=== PATIENT | female | born 1955 | race Two or more races ===

== ENCOUNTER → 2016-11-03 | Outpatient (CLI) | payer SELFPAY ==
--- NOTE | 2016-11-03 14:12 | RAD ---
Right great toe, 3 views, 11/03/2016: History: Great toe swelling No acute fracture or destructive bony lesion is seen. No significant arthritic change is seen. There is sesamoid bone deformity and sclerosis at the first MTP joint level suggesting old trauma. IMPRESSION: No acute bony abnormality is detected.
== END | disposition home or self-care (01) ==
LOC: DXRADRC 11:02
PROVIDERS: ATTEND Physician Assistant Medical
DX: M79.89 Other specified soft tissue disorders (principal)
CPT/HCPCS: 73660

== ENCOUNTER → 2020-11-09 | Outpatient (CLI) | payer MEDICARE ==
--- NOTE | 2020-11-09 16:43 | RAD ---
Bone Densitometry History: Reason: / Spl. Instructions: / History: Findings: Bone Densitometry was performed with dual photon absorption of the lumbar spine and right proximal fe mur. Lumbar Spine: Bone density is 1.32 g/cm2 for L1-L4. T-score is 1.2. Z-score is 2.3. Right femoral neck: Bone density is 0.699 g/cm2. T-score is -1.9. Z-score is -0.7. IMPRESSION: 1. Normal bone mineral density of the lumbar spine. 2. Osteopenia of the right femoral neck. World Health Organization definition of osteoporosis and osteopenia for women: normal equal s T score at or above -1.0 standard deviations; osteopenia equals T score between -1.0 and -2.5 stand jennifer deviations; osteoporosis equals T score at or below -2.5 standard deviations. Electronically signed by: Brijesh Kennedy MD (11/09/2020 4:41 PM) [id number]
--- NOTE | 2020-11-09 17:27 | RAD ---
BILATERAL SCREENING MAMMOGRAM, 3-D History: Routine screening. Comparison: None. Interpreted as new baseline examination. Technique: MLO and CC digital tomosynthesis (3D) images obtained. Radiologist reviewed these images on dedicated workstation. Findings: Breast Tissue Density A : The breasts are almost entirely fatty. There are 2 well-circumscribed 5 mm masses in the inner posterior left breast. No correlate on the ML O view is seen. There are no suspicious microcalcifications or architectural distortion. IMPRESSION: There are 2 small masses in the inner posterior left breast. Recommend further evaluation with ultras ound. BI-RADS Category 0: Incomplete: Need additional imaging evaluation. The images were reviewed with computer-aided detection. Patient information is entered into reminder system with a target due date for the next screening [facility] mogram. Mammography is the most sensitive method for finding small breast cancers, but it does not detect the m all and is not a substitute for careful clinical examination. A negative mammogram does not negate a clinically suspicious finding and should not result in delay in biopsying a clinically suspicious a bnormality. "Our facility is accredited by the [employer] Mammography Program." Electronically signed by: Brijesh Kennedy MD (11/09/2020 5:25 PM) [id number]
== END ==
LOC: MAMMO 09:05
PROVIDERS: ATTEND Physician Assistant Medical
DX: Z12.31 Encounter for screening mammogram for malignant neoplasm of breast (principal); M85.851 Other specified disorders of bone density and structure, right thigh; M81.0 Age-related osteoporosis without current pathological fracture; N63.20 Unspecified lump in the left breast, unspecified quadrant; Z78.0 Asymptomatic menopausal state
CPT/HCPCS: 77063; 77067; 77080

== ENCOUNTER → 2020-11-23 | Outpatient (CLI) | payer MEDICARE ==
--- NOTE | 2020-11-23 13:57 | RAD ---
EXAM: Left breast sonogram. HISTORY: 65-year-old female presents for evaluation of nodularity within the left breast demonstrated on a baseline mammogram dated 11/09/2020. TECHNIQUE: Sonographic imaging of the left breast include all 4 quadrants and the retroareolar region was performed. COMPARISON: Mammogram dated 11/09/2020. FINDINGS: There is a 6 mm complicated cyst or cluster of cysts at the 8:00 position 4 cm from the nip ple, likely corresponding with the site of mammographic nodularity on the comparison screening mammog lizzy. There is a smaller suspected complicated cyst measuring 3 mm at the 9:00 position 3 cm from the nipple. There is a 5 mm complicated cyst or focally dilated duct within the retroareolar location. No suspicious lesion is seen. IMPRESSION: 1. 6 mm benign complicated cyst or cluster of cysts at the 8:00 position 4 cm the nipple, 3 mm compli cated cyst at the 9:00 position 3 cm from the nipple and 5 mm, complicated or focally dilated duct wi thin the right shoulder location. These likely correspond with areas of mammographic nodularity. Cain lexx, there is a smaller nodular density at the 8:00 position demonstrated mammographically which demo nstrates no convincing sonographic correlate. The absence of a sonographic correlate favors benignity . Short-term follow-up is recommended given the absence of prior mammograms for comparison. 2. BI-RADS Category 3: Probably benign finding(s). Short term follow up with a diagnostic left breast mammogram and sonogram in 6 months is recommended. Electronically signed by: Isabel Granados MD (11/23/2020 1:55 PM) [id number]
== END ==
LOC: US 12:53
PROVIDERS: ATTEND Physician Assistant Medical
DX: N60.02 Solitary cyst of left breast (principal)
CPT/HCPCS: 76641